=== PATIENT | female | born 1940 ===

== ENCOUNTER 2017-07-19 12:39 | Emergency (ER) | payer OTHER ==
[2017-07-19 13:07] VITALS: BP 133/74; PULSE 68; RESP 18; TEMP 98.3; O2SAT 100
--- NOTE | 2017-07-19 13:40 | RAD ---
PROCEDURE: Radiographs of the Left Shoulder HISTORY: s/p fall 6 months ago COMPARISON: No prior. FINDINGS: BONES: Bone alignment is normal. There is periarticular bone demineralization pain There is no acute displaced fracture or bone destruction. JOINTS: Normal. Glenohumeral and acromioclavicular joints preserved. SOFT TISSUES: Normal. OTHER FINDINGS: None. IMPRESSION: No acute fracture or dislocation.
--- NOTE | 2017-07-19 14:10 | C.PDOC ---
History Of Present Illness 77 years old female presents to the ED for evaluation of left shoulder pain onset 5 to 6 months ago status post fall. Patient reports an X-Ray was taken for her shoulder 2 weeks after injury and was negative. She denies any numbness or tingling. PMD: non provided Time Seen by Provider: 07/19/17 13:14 Chief Complaint (Nursing): Upper Extremity Problem/Injury History Per: Patient History/Exam Limitations: no limitations Onset/Duration Of Symptoms: Other (5-6 months) Past Medical History Reviewed: Historical Data, Nursing Documentation, Vital Signs Vital Signs: Last Vital Signs Temp 98.3 F 07/19/17 13:04 Pulse 68 07/19/17 13:04 Resp 18 07/19/17 13:04 BP 133/74 07/19/17 13:04 Pulse Ox 100 07/21/17 10:37 - Medical History PMH: HTN, Hyperlipidemia Surgical History: Cholecystectomy Family History: States: Unknown Family Hx - Social History Hx Tobacco Use: No Hx Alcohol Use: No Hx Substance Use: No Review Of Systems Musculoskeletal: Positive for: Shoulder Pain (Left). Negative for: Neck Pain Neurological: Negative for: Weakness, Numbness Physical Exam - Physical Exam Appears: Well, Non-toxic, No Acute Distress Skin: Warm, Dry Extremity: No Normal ROM (Decreased ROM to left shoulder), Tenderness (proximal shoulder and anterior chest wall close to shoulder), No Swelling, No Other ( Tenderness to left elbow or wrist) Pulses: Left Radial: Normal, Right Radial: Normal Neurological/Psych: Oriented x3, Normal Speech, Normal Cognition, Normal Motor, Normal Sensation (Intact) ED Course And Treatment O2 Sat by Pulse Oximetry: 100 (RA) Pulse Ox Interpretation: Normal - Other Rad left shoulder X-Ray: Read By Radiologist Interpretation: No acute fracture or dislocation. Medical Decision Making Medical Decision Making: Time: 1321 Initial plan: --Left Shoulder Rad xray neg. pt's son requesting mri; advised unable to get that study in ed today , needs ortho evaluation. Disposition Counseled Patient/Family Regarding: Studies Performed, Diagnosis, Need For Followup - Disposition Referrals: Jayleen Hunter MD [Staff Provider] - [facility] [Outside] Disposition: HOME/ ROUTINE Disposition Time: 14:07 Condition: GOOD Additional Instructions: Contine con Tylenol o Advil para el dolor. Las compresas fras varias veces al da pueden ayudar. Por favor, yisel un seguimiento con la marcello hope (para un control regular) y con el ortopedista, el Dr. Hunter. Llame a ambos para citas. Please continue with Tylenol or Advil for pain. Cold compresses several times a day may help. Please follow up with both medical clinic (for a regular check up) and with the orthopedist, Dr Hunter. Call both for appointments. Instructions: Shoulder Sprain (DC) Forms: Gen Discharge Inst U[place]ayan, [employer] (Uruguayan) Print Language: SAMI - Clinical Impression Clinical Impression: Left shoulder pain - PA / [employer] / Resident Statement MD/DO has reviewed & agrees with the documentation as recorded. - Scribe Statement The provider has reviewed the documentation as recorded by the Scribe Jimena Gomez
== END 2017-07-19 14:18 | disposition home or self-care (01) ==
LOC: C.ER 12:39
DX: M25.512 Pain in left shoulder (principal)